=== PATIENT | female | born 1965 | race Caucasian/White ===

== ENCOUNTER → 2024-04-24 09:49 | Outpatient (REF) | payer BC, SELFPAY ==
[2024-04-24 13:03] LABS: ALT (SGPT) 13 U/L (0-35); AST (SGOT) 17 U/L (14-36); Albumin 4.4 g/dl (3.5-5.0); Alkaline Phosphatase 67 U/L (38-126); Blood Urea Nitrogen 15 mg/dl (7-17); Calcium 9.6 mg/dl (8.4-10.2); Carbon Dioxide 30 mmol/L (22-30); Chloride 103 mmol/L (98-107); Glucose 105 mg/dl (70-99); HDL Cholesterol 71 mg/dl; LDL Cholesterol, Calculated 79 mg/dl; Potassium 4.1 mmol/L (3.5-5.1); Sodium 138 mmol/L (135-145); Total Bilirubin 0.4 mg/dl (0.2-1.3); Total Cholesterol 166 mg/dl (50-199); Total Protein 6.6 g/dl (6.3-8.2); Triglyceride 80 mg/dl (10-149); Very Low Density Lipoprotein 16 mg/dl (0-30); eGFR > 60.00
[2024-04-24 13:51] LABS: Glycohemoglobin (HgbA1c) 6.1 % (4.0-5.6)
== END ==
LOC: HWLAB 09:49
PROVIDERS: ATTENDING PHYSICIAN Nurse Practitioner Family; FAMILY PHYSICIAN Family Medicine
DX: E11.9 Type 2 diabetes mellitus without complications (principal)
CPT/HCPCS: 36415; 80053; 80061; 83036

== ENCOUNTER → 2024-09-08 08:50 | Outpatient (REF) | payer BC, SELFPAY ==
[2024-09-08 12:48] LABS: ALT (SGPT) 19 U/L (0-35); AST (SGOT) 22 U/L (14-36); Albumin 4.3 g/dl (3.5-5.0); Alkaline Phosphatase 57 U/L (38-126); Blood Urea Nitrogen 19 mg/dl (7-17); Calcium 9.4 mg/dl (8.4-10.2); Carbon Dioxide 23 mmol/L (22-30); Chloride 106 mmol/L (98-107); Glucose 117 mg/dl (70-99); HDL Cholesterol 74 mg/dl; LDL Cholesterol, Calculated 83 mg/dl; Sodium 142 mmol/L (135-145); Total Bilirubin 0.6 mg/dl (0.2-1.3); Total Cholesterol 176 mg/dl (50-199); Total Protein 6.8 g/dl (6.3-8.2); Triglyceride 97 mg/dl (10-149); Very Low Density Lipoprotein 19 mg/dl (0-30); eGFR > 60.00
[2024-09-08 12:54] LABS: Microalbumin/creatinine Ratio 15.6 mg/g
[2024-09-08 13:08] LABS: Glycohemoglobin (HgbA1c) 6.3 % (4.0-5.6)
== END ==
LOC: HWLAB 08:50
PROVIDERS: ATTENDING PHYSICIAN Internal Medicine Endocrinology, Diabetes & Metabolism; FAMILY PHYSICIAN Family Medicine
DX: E11.9 Type 2 diabetes mellitus without complications (principal)
CPT/HCPCS: 36415; 80053; 80061; 82043; 82570; 83036

== ENCOUNTER 2025-01-10 06:15 | Day surgery (SDC) | payer BC, SELFPAY ==
[2025-01-10 08:28] VITALS: BP 127/70
[2025-01-10 08:32] LABS: Glucose - Point of Care 118 mg/dl (70-99)
[2025-01-10 08:36] VITALS: BMI 25.6
[2025-01-10] MEDS: PRED FORTE 1% EYE DROPS 1 DROP OPHTH (08:37)
[2025-01-10] MEDS: ALCAINE 0.5% EYE DROPS 1 DROP OPHTH (08:37)
[2025-01-10] MEDS: POLYTRIM OPHTHALMIC SOLUTION 1 DROP OPHTH (08:38)
[2025-01-10] MEDS: MYDRIACYL 1 DROP OPHTH (08:38)
[2025-01-10] MEDS: NEO-SYNEPHRINE 2.5% OPH SOL. 1 DROP OPHTH (08:39)
[2025-01-10] MEDS: AKTEN OPHTHALMIC GEL 1 ML OPHTH (08:40)
[2025-01-10] MEDS: ACUVAIL 10 DROPS OPHTH (08:40)
[2025-01-10] MEDS: CYCLOGYL 1% EYE DROPS 1 DROP OPHTH (08:40)
[2025-01-10] MEDS: NORMOSOL-R/PLASMALYTE-A 1000 IV (08:41)
[2025-01-10 08:43] VITALS: BMI 25.6
[2025-01-10 10:00] VITALS: BP 114/67
== END 2025-01-10 10:31 | disposition home or self-care (01) ==
LOC: SDS 06:15
PROVIDERS: ATTENDING PHYSICIAN Ophthalmology
DX: H25.811 Combined forms of age-related cataract, right eye (principal)
CPT/HCPCS: 66984; 82962; V2632

== ENCOUNTER 2025-01-24 06:27 | Day surgery (SDC) | payer BC, SELFPAY ==
[2025-01-24 08:36] VITALS: BP 126/59
[2025-01-24 08:42] VITALS: BMI 24.0
[2025-01-24 08:43] LABS: Glucose - Point of Care 128 mg/dl (70-99)
[2025-01-24] MEDS: PRED FORTE 1% EYE DROPS 1 DROP OPHTH (09:10)
[2025-01-24] MEDS: POLYTRIM OPHTHALMIC SOLUTION 1 DROP OPHTH (09:10)
[2025-01-24] MEDS: ALCAINE 0.5% EYE DROPS 1 DROP OPHTH (09:10)
[2025-01-24] MEDS: MYDRIACYL 1 DROP OPHTH (09:10)
[2025-01-24] MEDS: ACUVAIL 10 DROPS OPHTH (09:11)
[2025-01-24] MEDS: CYCLOGYL 1% EYE DROPS 1 DROP OPHTH (09:11)
[2025-01-24] MEDS: AKTEN OPHTHALMIC GEL 1 ML OPHTH (09:11)
[2025-01-24] MEDS: NEO-SYNEPHRINE 2.5% OPH SOL. 1 DROP OPHTH (09:11)
[2025-01-24 10:20] VITALS: BP 126/70
== END 2025-01-24 10:45 | disposition home or self-care (01) ==
LOC: SDS 06:27
PROVIDERS: ATTENDING PHYSICIAN Ophthalmology
DX: H25.811 Combined forms of age-related cataract, right eye (principal)
CPT/HCPCS: 66984; 82962; V2632

== ENCOUNTER → 2025-03-07 07:40 | Outpatient (REF) | payer BC, SELFPAY ==
[2025-03-07 10:08] LABS: ALT (SGPT) 15 U/L (0-35); AST (SGOT) 17 U/L (14-36); Albumin 4.3 g/dl (3.5-5.0); Alkaline Phosphatase 70 U/L (38-126); Blood Urea Nitrogen 15 mg/dl (7-17); Calcium 9.5 mg/dl (8.4-10.2); Carbon Dioxide 28 mmol/L (22-30); Chloride 110 mmol/L (98-107); Glucose 124 mg/dl (70-99); HDL Cholesterol 58 mg/dl; LDL Cholesterol, Calculated 87 mg/dl; Potassium 4.3 mmol/L (3.5-5.1); Sodium 142 mmol/L (135-145); Total Bilirubin 0.5 mg/dl (0.2-1.3); Total Cholesterol 171 mg/dl (50-199); Total Protein 6.9 g/dl (6.3-8.2); Triglyceride 132 mg/dl (10-149); Very Low Density Lipoprotein 26 mg/dl (0-30); eGFR > 60.00
[2025-03-07 10:09] LABS: Glycohemoglobin (HgbA1c) 6.5 % (4.0-5.6)
== END ==
LOC: HWLAB 07:40
PROVIDERS: ATTENDING PHYSICIAN Internal Medicine Endocrinology, Diabetes & Metabolism; FAMILY PHYSICIAN Family Medicine
DX: E11.9 Type 2 diabetes mellitus without complications (principal)
CPT/HCPCS: 36415; 80053; 80061; 83036

== ENCOUNTER → 2025-08-30 06:58 | Outpatient (REF) | payer BC, SELFPAY ==
[2025-08-30 10:54] LABS: ALT (SGPT) 13 U/L (0-35); AST (SGOT) 15 U/L (14-36); Albumin 4.1 g/dl (3.5-5.0); Alkaline Phosphatase 76 U/L (38-126); Blood Urea Nitrogen 19 mg/dl (7-17); Calcium 9.3 mg/dl (8.4-10.2); Carbon Dioxide 29 mmol/L (22-30); Chloride 105 mmol/L (98-107); Glucose 117 mg/dl (70-99); HDL Cholesterol 48 mg/dl; LDL Cholesterol, Calculated 76 mg/dl; Potassium 4.3 mmol/L (3.5-5.1); Sodium 137 mmol/L (135-145); Total Protein 6.7 g/dl (6.3-8.2); Very Low Density Lipoprotein 44 mg/dl (0-30); eGFR > 60.00
[2025-08-30 10:56] LABS: Microalb - Urine Creatinine 65.900 mg/dl
[2025-08-30 11:02] LABS: Glycohemoglobin (HgbA1c) 6.5 % (4.0-5.9)
[2025-08-30 12:35] LABS: Microalbumin, Random Urine <0.6 mg/dl (0.6-1.7)
== END ==
LOC: HWLAB 06:58
PROVIDERS: ATTENDING PHYSICIAN Internal Medicine Endocrinology, Diabetes & Metabolism
DX: E11.9 Type 2 diabetes mellitus without complications (principal)
CPT/HCPCS: 36415; 80053; 80061; 82043; 82570; 83036